=== PATIENT | female | born 1995 | race Caucasian/White ===

== ENCOUNTER 2017-09-08 04:28 | Outpatient (CLI) | payer OTHER | END 2017-09-08 15:41 | disposition home or self-care (01) | LOC: OBS/DEL 04:28 | DX: O47.1 False labor at or after 37 completed weeks of gestation (principal); O23.33 Infections of other parts of urinary tract in pregnancy, third trimester ==

== ENCOUNTER 2017-09-15 22:33 | Inpatient (IN) | payer OTHER ==
[~2017-09-15] VITALS: Ht 165.1 cm; Wt 68.0 kg
[2017-09-17] MEDS ORDERED: PRENATAL TABLE1 EAC3 PO (14:36)
== END 2017-09-19 12:16 | DRG 775 ==
LOC: OBS/DEL 22:33 → LDR 09-16 13:01 → OB/GYN 09-17 14:20
PROC: 10E0XZZ Delivery of Products of Conception, External Approach (ICD-10-PCS; principal; 2017-09-17)
PROC: 0W8NXZZ Division of Female Perineum, External Approach (ICD-10-PCS; 2017-09-17)
PROC: 10907ZC Drainage of Amniotic Fluid, Therapeutic from Products of Conception, Via Natural or Artificial Opening (ICD-10-PCS; 2017-09-17)
PROC: 3E033VJ Introduction of Other Hormone into Peripheral Vein, Percutaneous Approach (ICD-10-PCS; 2017-09-17)
PROC: 4A1HXCZ Monitoring of Products of Conception, Cardiac Rate, External Approach (ICD-10-PCS; 2017-09-17)
DX: O99.824 Streptococcus B carrier state complicating childbirth (principal); Z3A.40 40 weeks gestation of pregnancy; Z37.0 Single live birth